=== PATIENT | female | born 1980 | race Two or more races ===

== ENCOUNTER 2018-10-16 08:55 | Inpatient (IN) | payer OTHER ==
[2018-10-16] MEDS: ELECTROLYTE-148 SOLN 1,000 ML IV SCH (09:30)
[2018-10-16] MEDS ORDERED: ELECTROLYTE-148 SOLN 500 ML IV ONE (10:05)
[2018-10-16] MEDS ORDERED: CITRIC ACID/SODIUM CITRATE 30 ML UNIT-DOSE CUP PO ONE (10:05)
[2018-10-16 10:07] VITALS: BMI 29.4
--- NOTE | 2018-10-16 10:11 | HP ---
Past Medical History - Admission Chief Complaint: here for scheduled section, placenta previa History of Present Illness: 38 y/o female with h/o multiple SAB here at 37.1 weeks with SIUP scheduled c section due to placenta previa. complicated by factor 5 leiden heterozygous mutation, pt has been on heparin - last dose on 12 in the evening. Pt also with schizoeffective disorder, taking seroquel. AMA. via IVF. Otherwise uncomplicated. No complaints today. History Source: Patient, Medical Record Limitations to Obtaining History: No Limitations - Past Medical History Cardiovascular: No: HTN Pulmonary: No: Asthma Gastrointestinal: No: Inflamatory Bowel Disease Hepatobiliary: No: Hepatitis B, Hepatitis C Renal/: No: Renal Failure, UTI Reproductive: Yes: Other (recurrent miscarriage). No: Ectopic , Fibroids, PID Heme/Onc: Yes: Other (factor V leiden heterozygote). No: Anemia Psych: Yes: Anxiety, Other (schizoeffective disorder) - Past Surgical History Past Surgical History: Yes: None Hx Myomectomy: No Hx Transabdominal Cerclage: No - Alcohol/Substance Use Hx Alcohol Use: No History of Substance Use: reports: None - Social History Usual Living Arrangement: Yes: With Spouse ADL: Independent History of Recent Travel: No Home Medications - Allergies Allergies/Adverse Reactions: Allergies Allergy/AdvReac Type Severity Reaction Status Date / Time Cholinesterase Allergy Severe Anaphylaxis Verified 10/10/18 09:42 Inhibitor(Carbamate) coffee (Coffea arabica) Allergy Intermediate Nausea Verified 10/10/18 09:42 olive oil Allergy Intermediate dizziness Verified 10/10/18 09:42 olives Allergy Intermediate dizziness, Uncoded 10/10/18 09:42 headache - Home Medications Home Medications: Ambulatory Orders Arginine [l-Arginine] 1,000 mg PO DAILY 08/27/18 Enoxaparin [Lovenox -] 40 mg SQ DAILY 08/27/18 Vit Calc,Iron,Folic [ Vitamins] 1 each PO DAILY 08/27/18 Quetiapine Fumarate [Seroquel -] 700 mg PO HS 08/27/18 Aspirin [Aspirin EC] 81 mg PO DAILY 10/01/18 Folic Acid - 2 mg PO DAILY 10/01/18 L. Acidophilus/Bifid. Animalis [Probiotic 5 Billion Cell Cap] 1 each PO DAILY Magnesium Oxide [Magnesium] 400 mg PO DAILY 10/01/18 [place]-3 Fatty Acids/Fish Oil [Fish Oil 1,000 mg Capsule] 1 each PO DAILY Sodium Chloride [Saline Nasal Clarissa] 45 ml NS DAILY 10/01/18 Glyburide 2.5 mg PO BID 10/15/18 Review of Systems - Review of Systems Constitutional: reports: No Symptoms Eyes: reports: No Symptoms HENT: reports: No Symptoms Neck: reports: No Symptoms Cardiovascular: reports: No Symptoms Respiratory: reports: No Symptoms Gastrointestinal: reports: No Symptoms Genitourinary: reports: No Symptoms Breasts: reports: No Symptoms Reported Musculoskeletal: reports: No Symptoms Integumentary: reports: No Symptoms Neurological: reports: No Symptoms Endocrine: reports: No Symptoms Hematology/Lymphatic: reports: No Symptoms Psychiatric: reports: No Symptoms Physical Exam - Maternity Constitutional: Yes: Well Nourished, No Distress, Calm Eyes: Yes: Conjunctiva Clear, EOM Intact HENT: Yes: Atraumatic, Normocephalic Neck: Yes: Trachea Midline Cardiovascular: Yes: Regular Rate and Rhythm - Abdominal Exam/OB Number of Fetuses: Single Presentation: Vertex Category: I Accelerations: Uniform Decelerations: None - Vaginal Exam/OB Vaginal Bleediing: No - Physical Exam Psychiatric: Yes: Alert, Oriented Hemorrhage Risk Assessment - Risk Factors High Risk Factors: Yes: Placenta previa, low lying Risk Score: 2 Risk Level: High Risk Problem List - Problems (1) Placenta previa Code(s): O44.00 - COMPLETE PLACENTA PREVIA NOS OR WITHOUT HEMOR, UNSP TRI (2) Advanced maternal age (AMA) in Code(s): [id number] - (3) Schizoaffective disorder Code(s): F25.9 - SCHIZOAFFECTIVE DISORDER, UNSPECIFIED Assessment/Plan 38 y/o with SIUP at 37 weeks, scheduled delivery AFVSS FHTS cat 1 NPO [place] Anesthesia/nusery aware factor V leiden heterozygote - for SCDs intraop/post op -will continue lovenox post
[2018-10-16] MEDS ORDERED: morphine SULFATE/Preservative Free 0.5 MG/ML (1cc Syringe) ONE (12:37)
[2018-10-16] MEDS ORDERED: ceFAZolin SODIUM 1 GM VIAL ONE (12:37)
[2018-10-16] MEDS ORDERED: morphine SULFATE/Preservative Free 0.5 MG/ML (1cc Syringe) SPIN ONE (12:45)
[2018-10-16] MEDS ORDERED: OXYTOCIN 10 UNITS/ML VIAL ONE ×2 (12:52→13:08)
[2018-10-16] MEDS ORDERED: ONDANSETRON 4 MG/2 ML VIAL IVPUSH PRN (12:58)
[2018-10-16] MEDS ORDERED: SODIUM CHLORIDE 0.9% P/F 10 ML VIAL IJ ONE ×2 (13:00→13:01)
[2018-10-16] MEDS ORDERED: PHENYLEPHRINE HCL 10 MG/1 ML SINGLE DOSE VIAL ONE (13:01)
[2018-10-16] MEDS ORDERED: IBUPROFEN 600 MG TABLET (FP) PO PRN (13:45)
[2018-10-16] MEDS ORDERED: oxyCODONE HCL 5 MG TABLET PO PRN (13:45)
[2018-10-16] MEDS: OXYTOCIN 20 UNITS in 0.9% NS 20 UNIT/1,000 ML INFUS.BAG IV SCH (13:45)
[2018-10-16] MEDS ORDERED: IBUPROFEN 800 MG/8 ML IJ IVPB PRN (13:45)
[2018-10-16] MEDS ORDERED: OXYTOCIN 20 UNITS in 0.9% NS 20 UNIT/1,000 ML INFUS.BAG IV ONE (14:56)
--- NOTE | 2018-10-16 15:09 | OP ---
Operative Note - Note: Operative Date: 10/16/18 Pre-Operative Diagnosis: complete placenta previa Operation: primary section Findings: normal b/l tubes/ovaries live male Surgeon: Antonieta Prado Locator: Rogelio Mercado Anesthesiologist/WINE MANAGER: Macho Mcdonald Anesthesia: Spinal Specimens Removed: placenta Estimated Blood Loss (mls): 800 Operative Report Dictated: Yes
[2018-10-16] MEDS ORDERED: QUEtiapine FUMARATE 400 MG TABLET PO SCH (22:00)
[2018-10-16] MEDS: FERROUS SO4 325 MG TABLET (FP) PO SCH (22:33)
[2018-10-16] MEDS: QUETIAPINE FUMARATE PO SCH (23:40)
[2018-10-17] MEDS: METHYLERGONOVINE MALEATE 0.2 MG/1 ML AMP IM PRN ×2 (01:40→03:07)
--- NOTE | 2018-10-17 03:11 | PN ---
Progress Note (short form) - Note Progress Note: Called to patient bedside by nursing staff for concern of vaginal bleeding s/p methergine at approximately 1:40 AM Patient denies acute complaints - denies headache, chest pain, SOB BP 102/63 HR 117 ABD uterus firm, 1 below umbilicus, mild tenderness to palpation PROCUREMENT COST COORDINATOR approximately 50 cc clot evacuated from vagina / MARTHA, cervix noted to be approximately 3 cm dilated with additional clot in uterus, unable to be expressed secondary to patient's discomfort AP 38 yo s/p primary CD for placenta previa, bleeding noted Additional dose of methergine given will f/u stat CBC Plan for pad counts Will monitor for signs of worsening bleeding and symptoms of anemia Will continue to monitor
[2018-10-17 03:48] LABS: HEMOGLOBIN 7.1 GM/dL (10.7-15.3); MCH 30.6 pg (25.7-33.7); MCHC 35.6 g/dl (32.0-36.0); MEAN PLT VOLUME 7.1 fl (7.5-11.1); PLATELET COUNT 112 K/MM3 (134-434); RBC 2.33 M/mm3 (3.60-5.2); RDW 14.1 % (11.6-15.6); WHITE BLOOD COUNT 7.2 K/mm3 (4.0-10.0)
[2018-10-17] MEDS ORDERED: OXYTOCIN 20 UNITS in 0.9% NS 20 UNIT/1,000 ML INFUS.BAG IV ONE (07:22)
[2018-10-17 07:46] LABS: BASO % 0.3 % (0-2.0); EOS % 0.1 % (0-4.5); HEMATOCRIT 18.3 % (32.4-45.2); LYMPH % 12.9 % (8-40); MCH 29.7 pg (25.7-33.7); MCHC 33.9 g/dl (32.0-36.0); MEAN CELL VOLUME 87.6 fl (80-96); MEAN PLT VOLUME 7.3 fl (7.5-11.1); MONO % 5.9 % (3.8-10.2); NEUT % 80.8 % (42.8-82.8); PLATELET COUNT 111 K/MM3 (134-434); RBC 2.09 M/mm3 (3.60-5.2)
[2018-10-17] MEDS ORDERED: ACETAMINOPHEN 500 MG TABLET (FP) PO ONE (07:57)
[2018-10-17 08:00] LABS: HEMOGLOBIN 6.2 GM/dL (10.7-15.3)
[2018-10-17 08:02] LABS: INR 0.99 (0.83-1.09); PROTHROMBIN TIME (PATIENT) 11.7 SEC (9.7-13.0)
[2018-10-17] MEDS: OXYTOCIN 20 UNITS in 0.9% NS 20 UNIT/1,000 ML INFUS.BAG IV SCH ×2 (09:00→20:50)
[2018-10-17] MEDS: FERROUS SO4 325 MG TABLET (FP) PO SCH ×2 (10:00→21:32)
[2018-10-17] MEDS: ceFAZolin 2 GRAM PREMIX BAG IVPB SCH ×2 (10:07→18:15)
[2018-10-17] MEDS: ENOXAPARIN NA (PORCINE) 40 MG/0.4 ML DISP.SYRIN SQ SCH (10:47)
[2018-10-17] MEDS: IBUPROFEN 600 MG TABLET (FP) PO PRN ×2 (10:53→21:32)
--- NOTE | 2018-10-17 11:33 | PN ---
Progress Note (short form) - Note Progress Note: ANESTHESIOLOGY POST-OP CHECK 38F s/p under spinal anesthesia, POD #1. No acute complaints. Pain 3/ 10 and tolerable. Denies N/V, numbness, weakness, headache, backache. Vital Signs Temperature 100.3 F H 10/17/18 09:20 Pulse Rate 113 H 10/17/18 07:25 Respiratory Rate 20 10/17/18 10:00 Blood Pressure 98/58 L 10/17/18 07:25 O2 Sat by Pulse Oximetry (%) 100 10/16/18 14:35 Active Medications Acetaminophen (Tylenol -) 650 mg PO Q4H PRN PRN Reason: PAIN Bisacodyl (Dulcolax Suppository -) 10 mg RC PRN PRN PRN Reason: CONSTIPATION Cefazolin Sodium/Dextrose (Ancef 2 Gm Premixed Ivpb -) 2 gm IVPB Q8H [facility] Stop: 10/18/18 10:01 Last Admin: 10/17/18 10:07 Dose: 2 gm Diphenhydramine HCl (Benadryl Injection -) 25 mg IVPUSH Q4H PRN PRN Reason: Pruritis Enoxaparin Sodium (Lovenox -) 40 mg SQ DAILY [facility] Last Admin: 10/17/18 10:47 Dose: Not Given Ferrous Sulfate (Feosol -) 325 mg PO BID [facility] Last Admin: 10/17/18 10:00 Dose: Not Given Parenteral Electrolytes (Plasma-Lyte 148 -) 1,000 mls @ 125 mls/hr IV ASDIR [facility] Last Admin: 10/16/18 09:30 Dose: 125 mls/hr Oxytocin/Sodium Chloride (Normal Saline+20 Units Oxytocin -) 20 unit in 1,000 mls @ 125 mls/hr IV ASDIR [facility] Last Admin: 10/16/18 13:45 Dose: 125 mls/hr Ibuprofen (Motrin -) 600 mg PO Q4H PRN PRN Reason: PAIN LEVEL 4 - 6 Last Admin: 10/17/18 10:53 Dose: 600 mg Ibuprofen (Motrin -) 600 mg PO Q4H PRN PRN Reason: PAIN LEVEL 1 - 3 Ibuprofen (Caldolor Injection -) 800 mg IVPB Q8H PRN PRN Reason: PAIN LEVEL 6-10 Last Admin: 10/17/18 03:52 Dose: 800 mg Methylergonovine Maleate (Methergine Injection -) 0.2 mg IM Q4H PRN PRN Reason: Excessive Bleeding (L&D) Last Admin: 10/17/18 03:07 Dose: 0.2 mg Ondansetron HCl (Zofran Injection) 4 mg IVPUSH Q4H PRN PRN Reason: NAUSEA Oxycodone HCl (Roxicodone -) 5 mg PO Q4H PRN PRN Reason: PAIN LEVEL 4 - 6 Oxycodone HCl (Roxicodone -) 10 mg PO Q4H PRN PRN Reason: PAIN LEVEL 7 - 10 Quetiapine Fumarate 600 mg/ (Quetiapine Fumarate 100 mg) 700 mg PO HS [facility] Last Admin: 10/16/18 23:40 Dose: 700 mg Simethicone (Mylicon -) 80 mg PO Q4H PRN PRN Reason: GAS Gen: awake, alert, NAD Ext: no motor or sensory deficits of B/L LE No apparent anesthesia complications, pain well controlled. - Continue management as per primary team.
--- NOTE | 2018-10-17 11:35 | PN ---
Post Progress Note - Subjective Subjective: Pt seen/examined feeling well. VB/lochia heavy overnight, Dr. Garcia assessed and gave uterotonics, lochia scant this a.m. Hgb this a.m. 6.2, fever of 101.4 exam benign, no focal signs of infection/sources of fever, s/p tylenol Type of Delivery: Primary C/S Vital Signs: Vital Signs Temperature 100.3 F H 10/17/18 09:20 Pulse Rate 113 H 10/17/18 07:25 Respiratory Rate 20 10/17/18 10:00 Blood Pressure 98/58 L 10/17/18 07:25 O2 Sat by Pulse Oximetry (%) 100 10/16/18 14:35 Uterus: Yes: Fundus Firm Incision: Yes: Dressing dry and intact Abdomen/GI: Yes: Abdomen soft, Tolerating PO (clears). No: Abdominal Distention , Tender Lochia: Yes: Rubra Lochia, amount: Small Extremities: Yes: Calves non-tender. No: Edema Perineum: Yes: Intact - Labs Labs: CBC WBC 8.0 K/mm3 (4.0-10.0) 10/17/18 07:00 RBC 2.09 M/mm3 (3.60-5.2) L 10/17/18 07:00 Hgb 6.2 GM/dL (10.7-15.3) L* 10/17/18 07:00 Hct 18.3 % (32.4-45.2) L 10/17/18 07:00 MCV 87.6 fl (80-96) 10/17/18 07:00 MCH 29.7 pg (25.7-33.7) 10/17/18 07:00 MCHC 33.9 g/dl (32.0-36.0) 10/17/18 07:00 RDW 14.0 % (11.6-15.6) 10/17/18 07:00 Plt Count 111 K/MM3 (134-434) L 10/17/18 07:00 MPV 7.3 fl (7.5-11.1) L 10/17/18 07:00 Absolute Neuts (auto) 6.5 K/mm3 (1.5-8.0) 10/17/18 07:00 Neutrophils % 80.8 % (42.8-82.8) 10/17/18 07:00 Lymphocytes % 12.9 % (8-40) D 10/17/18 07:00 Monocytes % 5.9 % (3.8-10.2) 10/17/18 07:00 Eosinophils % 0.1 % (0-4.5) 10/17/18 07:00 Basophils % 0.3 % (0-2.0) 10/17/18 07:00 Nucleated RBC % 0 % (0-0) 10/17/18 07:00 Problem List - Problems (1) Placenta previa Code(s): O44.00 - COMPLETE PLACENTA PREVIA NOS OR WITHOUT HEMOR, UNSP TRI (2) Advanced maternal age (AMA) in Code(s): PPS1521 - (3) Schizoaffective disorder Code(s): F25.9 - SCHIZOAFFECTIVE DISORDER, UNSPECIFIED (4) Anemia Code(s): D64.9 - ANEMIA, UNSPECIFIED Assessment/Plan 2 units PRBC Tylenol/Motrin for fever start Ancef incentive spirometer continue to monitor, if fever persists will do CBC/UA/Blood cultures/workup
[2018-10-17] MEDS ORDERED: BISACODYL 10 MG SUPP.RECT RC PRN (13:45)
[2018-10-17] MEDS: oxyCODONE HCL 5 MG TABLET PO PRN ×2 (15:23→21:33)
[2018-10-17] MEDS: ACETAMINOPHEN 325 MG TABLET (FP) PO PRN ×2 (15:23→21:31)
[2018-10-17] MEDS: SIMETHICONE 80 MG TAB.CHEW (FP) PO PRN ×2 (15:24→21:32)
[2018-10-17] MEDS: ELECTROLYTE-148 SOLN 1,000 ML IV SCH (20:37)
[2018-10-17 21:18] LABS: BASO % 0.1 % (0-2.0); EOS % 0.3 % (0-4.5); HEMATOCRIT 23.3 % (32.4-45.2); HEMOGLOBIN 8.5 GM/dL (10.7-15.3); LYMPH % 15.5 % (8-40); MCHC 36.3 g/dl (32.0-36.0); MEAN CELL VOLUME 82.5 fl (80-96); MEAN PLT VOLUME 7.2 fl (7.5-11.1); MONO % 8.3 % (3.8-10.2); NEUT % 75.8 % (42.8-82.8); PLATELET COUNT 131 K/MM3 (134-434); RBC 2.82 M/mm3 (3.60-5.2); RDW 16.2 % (11.6-15.6); WHITE BLOOD COUNT 9.6 K/mm3 (4.0-10.0)
[2018-10-17] MEDS: QUETIAPINE FUMARATE PO SCH ×2 (21:33→21:50)
[2018-10-18] MEDS: OXYTOCIN 20 UNITS in 0.9% NS 20 UNIT/1,000 ML INFUS.BAG IV SCH ×2 (00:06→11:00)
[2018-10-18] MEDS: ceFAZolin 2 GRAM PREMIX BAG IVPB SCH ×2 (02:08→09:37)
[2018-10-18] MEDS: SIMETHICONE 80 MG TAB.CHEW (FP) PO PRN ×4 (04:40→21:57)
[2018-10-18] MEDS: IBUPROFEN 600 MG TABLET (FP) PO PRN (04:40)
[2018-10-18] MEDS: oxyCODONE HCL 5 MG TABLET PO PRN ×4 (04:40→22:01)
[2018-10-18 06:17] LABS: BASO % 0.2 % (0-2.0); EOS % 0.5 % (0-4.5); HEMATOCRIT 25.5 % (32.4-45.2); HEMOGLOBIN 8.7 GM/dL (10.7-15.3); LYMPH % 17.9 % (8-40); MCH 28.5 pg (25.7-33.7); MEAN PLT VOLUME 7.1 fl (7.5-11.1); MONO % 5.3 % (3.8-10.2); NEUT % 76.1 % (42.8-82.8); PLATELET COUNT 124 K/MM3 (134-434); RBC 3.03 M/mm3 (3.60-5.2); RDW 16.3 % (11.6-15.6); WHITE BLOOD COUNT 9.2 K/mm3 (4.0-10.0)
[2018-10-18] MEDS: FERROUS SO4 325 MG TABLET (FP) PO SCH ×2 (09:37→21:57)
[2018-10-18 10:09] LABS: ACANTHOCYTES 0; ANISOCYTOSIS 0; HELMET CELLS 0; HOWELL-JOLLY BODIES 0; MACROCYTOSIS 0; OVALOCYTE 0; PLATELET ESTIMATE DECREASED; ROULEAU 0; SICKELED CELLS 0; TARGET CELLS 0; TEAR DROP CELLS 0; TOXIC GRANULATION 0
[2018-10-18] MEDS: ACETAMINOPHEN 325 MG TABLET (FP) PO PRN ×3 (11:00→21:58)
[2018-10-18] MEDS: ENOXAPARIN NA (PORCINE) 40 MG/0.4 ML DISP.SYRIN SQ SCH (11:04)
[2018-10-18] MEDS: QUETIAPINE FUMARATE PO SCH (23:20)
--- NOTE | 2018-10-19 00:14 | PN ---
Post Note - Post Date of Delivery: 10/16/18 Post Day: 2 Vital Signs: Vital Signs - 24 hr 10/18/18 10/18/18 10/18/18 02:00 06:00 07:35 Temperature 97.0 F L 97.0 F L 97.5 F L Pulse Rate 89 Respiratory 18 Rate Blood Pressure 92/61 10/18/18 22:00 Temperature 98.6 F Pulse Rate 98 H Respiratory 18 Rate Blood Pressure 131/84 Labs: Laboratory Results - last 24 hr 10/18/18 05:45 WBC 9.2 RBC 3.03 L Hgb 8.7 L Hct 25.5 L MCV 84.0 MCH 28.5 MCHC 34.0 RDW 16.3 H Plt Count 124 L MPV 7.1 L Absolute Neuts (auto) 7.0 Neutrophils % 76.1 Neutrophils % (Manual) 79.8 Band Neutrophils % 1.0 Lymphocytes % 17.9 Lymphocytes % (Manual) 12.1 Monocytes % 5.3 Monocytes % (Manual) 6 Eosinophils % 0.5 Eosinophils % (Manual) 1.0 Basophils % 0.2 Basophils % (Manual) 0.0 Myelocytes % (Man) 0 Promyelocytes % (Man) 0 Blast Cells % (Manual) 0 Nucleated RBC % 0 Metamyelocytes 0 Hypochromia 0 Toxic Granulation 0 Dohle Bodies 0 Platelet Estimate Decreased Polychromasia 0 Poikilocytosis 0 Basophilic Stippling 0 Anisocytosis 0 Microcytosis 0 Macrocytosis 0 Spherocytes 0 Sickle Cells 0 Target Cells 0 Tear Drop Cells 0 Ovalocytes 0 Stomatocytes 0 Helmet Cells 0 Zabala-[place] Bodies 0 [place] Rings 0 [place] Cells 0 Acanthocytes (Spur) 0 Rouleaux 0 Fragmented RBCs 0 Schistocytes 0 - Subjective Subjective: Ambulating, Other (Large clot passed) - Objective Afebrile: Yes Breast: Not engorged Abdomen: Soft, Non-tender Uterus: Fundus firm Vagina: Scant lochia Extremities: Non-tender - Assessment/Plan (1) Anemia during puerperium Assessment: Other (SP Complete Previa) Plan: Other (CBC in AM)
[2018-10-19 07:25] LABS: BASO % 0.2 % (0-2.0); EOS % 0.7 % (0-4.5); HEMATOCRIT 21.7 % (32.4-45.2); HEMOGLOBIN 7.4 GM/dL (10.7-15.3); LYMPH % 23.9 % (8-40); MCH 28.9 pg (25.7-33.7); MEAN CELL VOLUME 84.9 fl (80-96); MONO % 6.1 % (3.8-10.2); NEUT % 69.1 % (42.8-82.8); PLATELET COUNT 132 K/MM3 (134-434); RBC 2.56 M/mm3 (3.60-5.2); RDW 16.1 % (11.6-15.6); WHITE BLOOD COUNT 7.3 K/mm3 (4.0-10.0)
--- NOTE | 2018-10-19 08:19 | PN ---
Post Progress Note - Subjective Subjective: 38 yo Para 1 status post primary , seen and evaluated. She c/o cold sores. Post Day: 3 Type of Delivery: Primary C/S Vital Signs: Vital Signs Temperature 98.6 F 10/18/18 22:00 Pulse Rate 98 H 10/18/18 22:00 Respiratory Rate 18 10/18/18 22:00 Blood Pressure 131/84 10/18/18 22:00 O2 Sat by Pulse Oximetry (%) 100 10/16/18 14:35 Breast Exam: Yes: Soft Incision: Yes: Dressing dry and intact Abdomen/GI: Yes: Abdomen soft, Tolerating PO Lochia: Yes: Rubra Lochia, amount: Small Extremities: Yes: Calves non-tender Perineum: Yes: Intact Activity: Ambulating - Labs Labs: CBC WBC 7.3 K/mm3 (4.0-10.0) 10/19/18 06:45 RBC 2.56 M/mm3 (3.60-5.2) L 10/19/18 06:45 Hgb 7.4 GM/dL (10.7-15.3) L 10/19/18 06:45 Hct 21.7 % (32.4-45.2) L 10/19/18 06:45 MCV 84.9 fl (80-96) 10/19/18 06:45 MCH 28.9 pg (25.7-33.7) 10/19/18 06:45 MCHC 34.0 g/dl (32.0-36.0) 10/19/18 06:45 RDW 16.1 % (11.6-15.6) H 10/19/18 06:45 Plt Count 132 K/MM3 (134-434) L 10/19/18 06:45 MPV 7.0 fl (7.5-11.1) L 10/19/18 06:45 Absolute Neuts (auto) 5.0 K/mm3 (1.5-8.0) 10/19/18 06:45 Neutrophils % 69.1 % (42.8-82.8) 10/19/18 06:45 Neutrophils % (Manual) 79.8 % (42.8-82.8) 10/18/18 05:45 Band Neutrophils % 1.0 % 10/18/18 05:45 Lymphocytes % 23.9 % (8-40) D 10/19/18 06:45 Lymphocytes % (Manual) 12.1 % (8-40) 10/18/18 05:45 Monocytes % 6.1 % (3.8-10.2) 10/19/18 06:45 Monocytes % (Manual) 6 % (3.8-10.2) 10/18/18 05:45 Eosinophils % 0.7 % (0-4.5) 10/19/18 06:45 Eosinophils % (Manual) 1.0 % (0-4.5) 10/18/18 05:45 Basophils % 0.2 % (0-2.0) 10/19/18 06:45 Basophils % (Manual) 0.0 % (0-2.0) 10/18/18 05:45 Myelocytes % (Man) 0 % (0-2) 10/18/18 05:45 Promyelocytes % (Man) 0 % (0-2) 10/18/18 05:45 Blast Cells % (Manual) 0 % (0-0) 10/18/18 05:45 Nucleated RBC % 0 % (0-0) 10/19/18 06:45 Metamyelocytes 0 % (0-2) 10/18/18 05:45 Hypochromia 0 10/18/18 05:45 Toxic Granulation 0 10/18/18 05:45 Dohle Bodies 0 10/18/18 05:45 Platelet Estimate Decreased 10/18/18 05:45 Polychromasia 0 10/18/18 05:45 Poikilocytosis 0 10/18/18 05:45 Basophilic Stippling 0 10/18/18 05:45 Anisocytosis 0 10/18/18 05:45 Microcytosis 0 10/18/18 05:45 Macrocytosis 0 10/18/18 05:45 Spherocytes 0 10/18/18 05:45 Sickle Cells 0 10/18/18 05:45 Target Cells 0 10/18/18 05:45 Tear Drop Cells 0 10/18/18 05:45 Ovalocytes 0 10/18/18 05:45 Stomatocytes 0 10/18/18 05:45 Helmet Cells 0 10/18/18 05:45 [place] Bodies 0 10/18/18 05:45 [place] Rings 0 10/18/18 05:45 [place] Cells 0 10/18/18 05:45 Acanthocytes (Spur) 0 10/18/18 05:45 Rouleaux 0 10/18/18 05:45 Fragmented RBCs 0 10/18/18 05:45 Schistocytes 0 10/18/18 05:45 Problem List - Problems (1) Status post primary low transverse section Code(s): Z98.891 - HISTORY OF UTERINE SCAR FROM PREVIOUS SURGERY Assessment/Plan Status post Cold sores Valtrex Ambulation Analgesia as needed Continue post op care
[2018-10-19] MEDS: valACYclovir HCL 500 MG TABLET (FP) PO SCH ×2 (10:26→21:55)
[2018-10-19] MEDS: ENOXAPARIN NA (PORCINE) 40 MG/0.4 ML DISP.SYRIN SQ SCH (10:30)
[2018-10-19] MEDS: FERROUS SO4 325 MG TABLET (FP) PO SCH ×2 (10:30→21:56)
[2018-10-19 12:41] LABS: ACANTHOCYTES 0; ANISOCYTOSIS 0; HELMET CELLS 0; HOWELL-JOLLY BODIES 0; MACROCYTOSIS 0; OVALOCYTE 0; PLATELET ESTIMATE DECREASED; ROULEAU 0; SICKELED CELLS 0; TARGET CELLS 0; TEAR DROP CELLS 0; TOXIC GRANULATION 0
[2018-10-19] MEDS: IBUPROFEN 600 MG TABLET (FP) PO PRN (19:15)
[2018-10-19] MEDS: SIMETHICONE 80 MG TAB.CHEW (FP) PO PRN ×2 (19:15→21:56)
[2018-10-19] MEDS: ACETAMINOPHEN 325 MG TABLET (FP) PO PRN (19:16)
[2018-10-19] MEDS ORDERED: oxyCODONE HCL 5 MG TABLET PO PRN ×2 (21:16→21:17)
[2018-10-19] MEDS: QUETIAPINE FUMARATE PO SCH (21:55)
--- NOTE | 2018-10-20 07:41 | PN ---
Progress Note (SOAP) - Subjective Chief Complaint: Pt doing well ambulating pt with out bleeding - Current Medications Current Medications: Active Medications Acetaminophen (Tylenol -) 650 mg PO Q4H PRN PRN Reason: PAIN Last Admin: 10/19/18 19:16 Dose: 650 mg Bisacodyl (Dulcolax Suppository -) 10 mg RC PRN PRN PRN Reason: CONSTIPATION Enoxaparin Sodium (Lovenox -) 40 mg SQ DAILY [facility] Last Admin: 10/19/18 10:30 Dose: 40 mg Ferrous Sulfate (Feosol -) 325 mg PO BID [facility] Last Admin: 10/19/18 21:56 Dose: 325 mg Ibuprofen (Motrin -) 600 mg PO Q4H PRN PRN Reason: PAIN LEVEL 4 - 6 Last Admin: 10/19/18 19:15 Dose: 600 mg Ibuprofen (Motrin -) 600 mg PO Q4H PRN PRN Reason: PAIN LEVEL 1 - 3 Methylergonovine Maleate (Methergine Injection -) 0.2 mg IM Q4H PRN PRN Reason: Excessive Bleeding (L&D) Last Admin: 10/17/18 03:07 Dose: 0.2 mg Oxycodone HCl (Roxicodone -) 5 mg PO Q4H PRN PRN Reason: PAIN SCALE 1-5 Last Admin: 10/19/18 21:56 Dose: 5 mg Oxycodone HCl (Roxicodone -) 10 mg PO Q4H PRN PRN Reason: PAIN SCALE 6-10 Quetiapine Fumarate 600 mg/ (Quetiapine Fumarate 100 mg) 700 mg PO [facility] Last Admin: 10/19/18 21:55 Dose: 700 mg Simethicone (Mylicon -) 80 mg PO Q4H PRN PRN Reason: GAS Last Admin: 10/19/18 21:56 Dose: 80 mg Valacyclovir HCl (Valtrex -) 500 mg PO BID [facility] Last Admin: 10/19/18 21:55 Dose: 500 mg - Objective Vital Signs: Vital Signs Temperature 98.7 F 10/19/18 22:00 Pulse Rate 96 H 10/19/18 22:00 Respiratory Rate 18 10/19/18 22:00 Blood Pressure 118/77 10/19/18 22:00 O2 Sat by Pulse Oximetry (%) 100 10/16/18 14:35 Constitutional: Yes: Well Nourished, No Distress Cardiovascular: Yes: WNL, Regular Rate and Rhythm Respiratory: Yes: WNL, Regular Gastrointestinal: Yes: WNL, Normal Bowel Sounds, Soft ....Post : Yes: Uterus firm, Uterus non-tender Breast(s): Yes: WNL Musculoskeletal: Yes: WNL Extremities: Yes: WNL Peripheral Pulses WNL: No Wound/Incision: Yes: Clean/Dry, Well Approximated, Steri Strips, Open to air Neurological: Yes: WNL, Alert, Oriented Labs Lab Results: CBC, BMP 10/19/18 06:45 Problem List - Problems (1) Anemia during puerperium Code(s): O99.03 - ANEMIA COMPLICATING THE PUERPERIUM Assessment/Plan Severe anemia sp complete previa Primarn Section POD4 stable Plan DC home return in 1 week ferrous sulfate 100mg TID colace 100mg PRN
--- NOTE | 2018-10-20 08:51 | DS ---
Physical Exam-SPECIALIST PHYSICIANS Vital Signs: Vital Signs Temperature 98.7 F 10/19/18 22:00 Pulse Rate 96 H 10/19/18 22:00 Respiratory Rate 18 10/19/18 22:00 Blood Pressure 118/77 10/19/18 22:00 O2 Sat by Pulse Oximetry (%) 100 10/16/18 14:35 Constitutional: Yes: Well Nourished, No Distress Respiratory: Yes: WNL, Regular Gastrointestinal: Yes: WNL ....Post : Yes: Uterus firm, Uterus non-tender Breast(s): Yes: WNL Musculoskeletal: Yes: WNL Extremities: Yes: WNL Edema: No Wound/Incision: Yes: Clean/Dry, Well Approximated, Steri Strips, Open to air Neurological: Yes: WNL, Alert, Oriented Labs: CBC, BMP 10/19/18 06:45 Delivery - Delivery Type of Anesthesia: Spinal Episiotomy/Laceration: None EBL (cc): 800 Delivery, Single - Stages of Labor Date of Delivery: 10/16/18 Time of Delivery: 12:55 Time Placenta Delivered: 12:55 Placenta: Yes: Manual Removal - Condition of Telecommunication Systems Designer/Medical Oncologist Present: Yes Name: Reji Luciano Infant Gender: Male Weight: 7 lb 12 oz Position: Left, OA Total Hours ROM (Hrs/Mins): 2min - 1 Minute Total Score: 8 5 Minutes Total Score: 9 - Feeding Plan Initial Plan: Exclusive throughout hospitalization Discharge Summary Reason For Visit: Current Active Problems Advanced maternal age (AMA) in (Acute) Anemia (Acute) Anemia during puerperium (Acute) Placenta previa (Acute) Schizoaffective disorder (Acute) Status post primary low transverse section (Acute) Procedures: Principal: Section Other Procedures: Blood transfusion Hospital Course: unremarkable Condition: Good - Instructions Diet, Activity, Other Instructions: Physical activity Resume your normal everyday activity as tolerated no heavy lifting or exercise until seen by your surgeon. You may walk unlimited jon of and climb stairs. You may resume driving the car when you feel safe and comfortable behind the wheel. No sexual activity as instructed. Wound care If you have a bandage, leave it on, and keep dry for 48-72 hours. After that time discard the outer bandage. If they are tapes on the skin under the out of bandage leave them in place. They will peel off in the next 7 to 10 days. Do Not Peel them off. You may shower the day after surgery. If there are tapes present on the skin, you may shower over them. Diet There are no dietary restrictions. Eat healthy, high-fiber foods. Drink 6 to 8 glasses of liquid each day. This will assist in keeping your bowels are regular. Pain management You may take Tylenol or acetaminophen or Ibuprofen (for example, Motrin, Advil etc.) from my pain prescription medication is ordered should be taken as prescribed for moderate to severe pain. Call MD for any of the following: Severe pain not relieved by medication Fever of 101 or higher Excessive bleeding or drainage on dressing Inability to urinate Disposition: HOME - Home Medications Comprehensive Discharge Medication List: Ambulatory Orders Arginine [l-Arginine] 1,000 mg PO DAILY 08/27/18 Enoxaparin [Lovenox -] 40 mg SQ DAILY 08/27/18 Vit Calc,Iron,Folic [ Vitamins] 1 each PO DAILY 08/27/18 Quetiapine Fumarate [Seroquel -] 700 mg PO HS 08/27/18 Aspirin [Aspirin EC] 81 mg PO DAILY 10/01/18 Folic Acid - 2 mg PO DAILY 10/01/18 L. Acidophilus/Bifid. Animalis [Probiotic 5 Billion Cell Cap] 1 each PO DAILY Magnesium Oxide [Magnesium] 400 mg PO DAILY 10/01/18 [place]-3 Fatty Acids/Fish Oil [Fish Oil 1,000 mg Capsule] 1 each PO DAILY Sodium Chloride [Saline Nasal [place]] 45 ml NS DAILY 10/01/18 Glyburide 2.5 mg PO BID 10/15/18 Ferrous Sulfate [Feosol] 325 mg PO BID #60 tablet 10/20/18 Ibuprofen [Motrin -] 600 mg PO TID #21 tablet 10/20/18
[2018-10-20 09:11] LABS: BASO % 0.2 % (0-2.0); EOS % 0.6 % (0-4.5); HEMATOCRIT 24.7 % (32.4-45.2); HEMOGLOBIN 8.9 GM/dL (10.7-15.3); LYMPH % 24.7 % (8-40); MCH 30.4 pg (25.7-33.7); MCHC 35.9 g/dl (32.0-36.0); MEAN CELL VOLUME 84.5 fl (80-96); MEAN PLT VOLUME 6.8 fl (7.5-11.1); MONO % 5.3 % (3.8-10.2); NEUT % 69.2 % (42.8-82.8); PLATELET COUNT 186 K/MM3 (134-434); RBC 2.92 M/mm3 (3.60-5.2); RDW 16.1 % (11.6-15.6)
[2018-10-20] MEDS: ENOXAPARIN NA (PORCINE) 40 MG/0.4 ML DISP.SYRIN SQ SCH (10:15)
[2018-10-20] MEDS: FERROUS SO4 325 MG TABLET (FP) PO SCH (10:15)
[2018-10-20] MEDS: valACYclovir HCL 500 MG TABLET (FP) PO SCH (10:15)
[2018-10-20 11:07] LABS: ACANTHOCYTES 0; ANISOCYTOSIS 0; HELMET CELLS 0; HOWELL-JOLLY BODIES 0; MACROCYTOSIS 0; OVALOCYTE 0; PLATELET ESTIMATE NORMAL; ROULEAU 0; SICKELED CELLS 0; TARGET CELLS 0; TEAR DROP CELLS 0; TOXIC GRANULATION 0
[2018-10-20 14:12] VITALS: BP 109/75; PULSE 100; TEMP 98
--- NOTE | 2018-10-22 16:47 | PATH ---
Surgical Pathology Report Patient Name: NASIM HOUGH Med. Rec. #: [id number] /Age/Gender: 1980 (Age: 38) / F Account: [id number] Location: [facility] OBS/EMAIL ENGINEER Taken: 10/16/2018 Received: 10/17/2018 Reported: 10/22/2018 Physicians: Antonieta Prado M.D. Specimen(s) Received PLACENTA Clinical History , 38 weeks 4 days, placenta previa, primary Final Diagnosis PLACENTA, SECTION: 724 G THIRD TRIMESTER PLACENTA WITH TRIVASCULAR UMBILICAL CORD, FOCAL INTRAPARENCHYMAL HEMORRHAGE (< 5% OF PLACENTAL SURFACE), AND UNREMARKABLE PLACENTAL MEMBRANES. Electronically Signed Eli Redman M.D. Gross Description The specimen is received fresh labeled placenta and is a 724 gram, 23.5 x 15.0 x 3.3 cm. placenta with attached membranes and umbilical cord. The attached membranes are wilcox, translucent with focal opacities and insert marginally. The umbilical cord measures 6 cm. in length and averages 1.3 cm. in diameter. The cord inserts at the margin. No true knots or strictures are identified. Cut surface of the umbilical cord reveals 3 vessels. The surface is [place]-blue with minimal fibrin deposition and appropriate caliber vessels. The maternal surface is red-brown, markedly fragmented and disrupted. Sectioning reveals a 0.6 cm in greatest dimension hemorrhagic lesion. The remaining placental parenchyma is red-brown and spongy. Certified Dietary Manager sections are submitted in 4 cassettes as follows: 1-membrane roll and umbilical cord; 2-lesion; 3-4-full thickness sections of placenta. 10/21/2018 [facility]10/21/2018
== END 2018-10-20 13:30 | disposition home or self-care (01) | DRG 787 ==
LOC: JLDR 08:55 → J3W 15:01
PROVIDERS: ADMIT Obstetrics & Gynecology; ATTEND Obstetrics & Gynecology
PROC: 10D00Z1 Extraction of Products of Conception, Low, Open Approach (ICD-10-PCS; principal; 2018-10-16)
PROC: 30233N1 Transfusion of Nonautologous Red Blood Cells into Peripheral Vein, Percutaneous Approach (ICD-10-PCS; 2018-10-17)
DX: O44.03 Complete placenta previa NOS or without hemorrhage, third trimester (principal); O99.113 Other diseases of the blood and blood-forming organs and certain disorders involving the immune mechanism complicating pregnancy, third trimester; D68.51 Activated protein C resistance; O72.1 Other immediate postpartum hemorrhage; O99.02 Anemia complicating childbirth; D64.9 Anemia, unspecified; O99.343 Other mental disorders complicating pregnancy, third trimester; F25.9 Schizoaffective disorder, unspecified; Z37.0 Single live birth; Z3A.37 37 weeks gestation of pregnancy
CPT/HCPCS: 36415; 36430; 36511; 82962; 85025; 85027; 85610; 85730; 86850; 86900; 86901; 86922; 88307-TC; 94010; P9038; P9058